=== PATIENT | male | born 1985 | race Hispanic/Latino ===

== ENCOUNTER → 2024-07-24 | Day surgery (SDC) | payer OTHER ==
[~2024-07-24] MED LIST: ACETAMINOPHEN 1000 MG/100 ML 100 ML IV ONE; BUPIVACAINE LIPOSOME/PF 266 MG/20 ML IJ ONE; DEXAMETHASONE SOD PHOS INJ 4 MG/ML SDV ONE; FAMOTIDINE 20 MG/2 ML VIAL IV ONE; FENTANYL CITRATE/PF 100MCG/2 ML INJ ONE; GLYCOPYRROLATE INJ 0.2 MG/ML VIAL ONE; HYDROCODONE/APAP 7.5MG-325MG 1 EA TAB ONE; LIDOCAINE HCL 2% LOCAL INJ 5 ML SDV VIAL INJ ONE; MIDAZOLAM HCL 2 MG/2 ML VIAL ONE; ONDANSETRON HCL INJ 2MG/ML 2ML 2 MG/ML VIAL ONE; PHENYLEPHRINE HCL 1% 10 MG/ML VIAL ONE; PROPOFOL IV EMULSION 10 MG/ML 20 ML VIAL ONE
[2024-07-24] MEDS: CEFAZOLIN SODIUM 2 GM ONE (07:15)
[2024-07-24] MEDS: LACTATED RINGER'S 1,000 ML ONE (07:15)
[2024-07-24] MEDS: HYDROCODONE/APAP 7.5MG-325MG 1 EA TAB PO ONE (10:20)
[2024-07-24 10:45] VITALS: BP 120/80; PULSE 74; RESP 14; O2SAT 100
== END | disposition home or self-care (01) ==
LOC: OR 06:24
PROVIDERS: ATTEND Orthopaedic Surgery Sports Medicine
DX: S83.232A Complex tear of medial meniscus, current injury, left knee, initial encounter (principal); M94.262 Chondromalacia, left knee; Z71.3 Dietary counseling and surveillance; E66.01 Morbid (severe) obesity due to excess calories; Z71.89 Other specified counseling; X58.XXXA Exposure to other specified factors, initial encounter; Z79.1 Long term (current) use of non-steroidal anti-inflammatories (NSAID)
CPT/HCPCS: 29879; 29882; C1713; J0131; J0666; J0690; J1100; J2003; J2371; J2405; J2704; J3010; J7121; J2250